=== PATIENT | male | born 1970 | race Caucasian/White ===

== ENCOUNTER 2017-05-13 09:54 | Emergency (ER) | payer OTHER ==
[~2017-05-13] VITALS: Ht 175.3 cm; Wt 108.9 kg
[~2017-05-13 09:54] MED LIST: IBUPROFEN200 M1 PO; IBUPROFEN200 MG PO; NORCO 5-325 TA1 EACH PO; PRILOSEC10 MG PO; SOMA350 MG PO; ZESTRIL10 MG PO
== END 2017-05-13 11:06 | disposition home or self-care (01) ==
LOC: ED 09:54
DX: S61.212A Laceration without foreign body of right middle finger without damage to nail, initial encounter (principal); I10 Essential (primary) hypertension; Z87.891 Personal history of nicotine dependence; Z88.5 Allergy status to narcotic agent; W26.0XXA Contact with knife, initial encounter
CPT/HCPCS: 90471; 90715; 99282

== ENCOUNTER 2019-08-30 01:43 | Emergency (ER) | payer BC ==
[~2019-08-30] VITALS: Ht 175.3 cm; Wt 113.8 kg
--- OUTSIDE RECORDS SUMMARY | 2019-08-30 01:46 | XMS ---
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 EЕлена VISIT COUNT (12 MO.) 1 ANDRES Neville TOTAL 1 NOTE: Visits indicate total known visits. ED/UCC VISIT TRACKING (12 MO.) 08/30/2019 01:43 ANDRES John [place] TYPE: Emergency COMPLAINT: - LEFT SIDE ABDOMINAL PAIN INPATIENT VISIT TRACKING (12 MO.) No inpatient visits to display in this time frame [id number]
[2019-08-30] MEDS ORDERED: METOPROLOL TART25 MG PO (01:57)
[2019-08-30] MEDS ORDERED: LISINOPRIL20 MG PO (01:57)
[2019-08-30] MEDS ORDERED: PROAIR HFA8.5 GM INH (01:58)
[2019-08-30] MEDS ORDERED: VITAMIN D21250 MCG PO (01:58)
[2019-08-30] MEDS ORDERED: QVAR REDIHALE10.6 GM (01:59)
[2019-08-30] MEDS ORDERED: FLAGYL500 MG PO (04:38)
[2019-08-30] MEDS ORDERED: NORCO 5-325 TA1 EACH PO (04:38)
[2019-08-30] MEDS ORDERED: CIPRO500 MG PO (04:38)
== END 2019-08-30 05:52 | disposition home or self-care (01) ==
LOC: ED 01:43
DX: R10.32 Left lower quadrant pain (principal); R11.2 Nausea with vomiting, unspecified; I10 Essential (primary) hypertension; Z88.5 Allergy status to narcotic agent; Z79.899 Other long term (current) drug therapy
CPT/HCPCS: 74177; 80053; 81001; 83690; 85025; 96361; 99284-25; J1170; J1956; J2405; J2550; J7121; Q9967

== ENCOUNTER 2020-02-09 13:11 | Emergency (ER) | payer BC ==
[~2020-02-09] VITALS: Ht 175.3 cm; Wt 113.8 kg
--- OUTSIDE RECORDS SUMMARY | ~2020-02-09 | XMS | Encounter Summary ---
Demographics + + + | Address | [address] | | | [place] [address] | + + + | Home Phone | | + + + | Preferred Language | Unknown | + + + | Marital Status | | + + + | Advent Affiliation | 1027 | + + + | Race | Unknown | + + + | Ethnic Group | Unknown | + + + Author + + + | Author | [facility] | | | and [place] | + + + | Organization | [facility] | | | and [place] | + + + | Address | Unknown | + + + | Phone | Unavailable | + + + Support + + +---------+ + | Name | Relationship | Address | Phone | + + +---------+ + | Milena Dial ECON | Unknown | | | [place] | | | | + + +---------+ + Care Team Providers + +------+ + | Care Brake Lining Finisher Name | Role | Phone | + +------+ + PCP | Unavailable | + +------+ + Encounter Details +--------+ + + + + | Date | Type | Department | Care Team | Description | +--------+ + + + + | 01/19/ | Hospital | [facility] | Ray [place]anan | | | 2000 - | Encounter | HOSPITAL MED SURG | MD Juan Carlos [address] | | | | | [address] | [facility] [address] | | | 01/22/ | | [place], [place] | [place] [address] | | | 2000 | | [address] | [phone] | | | | | [phone] | | | +--------+ + + + + Social History + +-------+ +--------+------+ | Tobacco Use | Types | Packs/Day | Years | Date | | | | | Used | | + +-------+ +--------+------+ | Never Assessed | | | | | + +-------+ +--------+------+ + + + | Sex Assigned at | Date Recorded | | | | + + + | Not on file | | + + + documented as of this encounter Plan of Treatment Not on filedocumented as of this encounter Visit Diagnoses Not on filedocumented in this encounter"
--- OUTSIDE RECORDS SUMMARY | ~2020-02-09 | XMS | Clinical Summary ---
Demographics + + + | Address | [address] | | | [place] [address] | + + + | Home Phone | | + + + | Preferred Language | Unknown | + + + | Marital Status | | + + + | Jewish Affiliation | 1027 | + + + | Race | Unknown | + + + | Ethnic Group | Unknown | + + + Author + + + | Author | [facility] | | | and [place] | + + + | Organization | [facility] | | | and [place] [...] Team Providers + +------+ + | Care Heating Unit Mechanic Name | Role | Phone | + +------+ + PCP | Unavailable | + +------+ + Allergies Not on File Medications Not on file Active Problems Not on file Social History + +-------+ +--------+------+ | Tobacco [...] on file | | + + + Last Filed Vital Signs Not on file Plan of Treatment + + +-------+ + | Health Maintenance | Due Date | Last | Comments | | | | Done | | + + +-------+ + | Vaccine: | | | | | Dtap/Tdap/Td (1 - | 0 | | | | Tdap) | | | | + + +-------+ + | Vaccine: Influenza | | | | | (#1) | 0 | | | + + +-------+ + Results Not on filefrom Last 3 Months"
[~2020-02-09 13:11] MED LIST changes: +CIPRO500 MG PO; +FLAGYL500 MG PO; +LISINOPRIL20 MG PO; +METOPROLOL TART25 MG PO; +PROAIR HFA8.5 GM INH; +QVAR REDIHALE10.6 GM; +VITAMIN D21250 MCG PO
[2020-02-09] MEDS ORDERED: ATORVASTATIN CA40 MG PO (15:17)
== END 2020-02-09 13:50 | disposition home or self-care (01) ==
LOC: ED 13:11
DX: R21 Rash and other nonspecific skin eruption (principal)

== ENCOUNTER 2022-06-12 17:38 | Emergency (ER) | payer BC ==
[~2022-06-12] VITALS: Ht 175.3 cm; Wt 117.9 kg
[~2022-06-12 17:38] MED LIST changes: +ATORVASTATIN CA40 MG PO
[2022-06-12] MEDS ORDERED: HYDROCODON-ACE1 EA11 PO (20:03)
== END 2022-06-12 20:46 | disposition home or self-care (01) ==
LOC: ED 17:38
DX: K63.89 Other specified diseases of intestine (principal); I10 Essential (primary) hypertension; I25.2 Old myocardial infarction; Z87.891 Personal history of nicotine dependence; Z88.5 Allergy status to narcotic agent; Z79.899 Other long term (current) drug therapy
CPT/HCPCS: 36415; 74177; 80053; 81001; 83690; 85025; 96361; 96375; 99284-25; A9270; J1885; J2405; J7030; Q9967

== ENCOUNTER 2023-06-05 08:55 | Emergency (ER) | payer BC ==
[~2023-06-05] VITALS: Ht 175.3 cm; Wt 112.1 kg
[~2023-06-05 08:55] MED LIST changes: +HYDROCODON-ACE1 EA11 PO
[2023-06-05] MEDS ORDERED: VENTOLIN HFA18 GM INH (10:00)
[2023-06-05] MEDS ORDERED: AMOX TR-K CLV1 EAC1 PO (10:00)
[2023-06-05 10:06] VITALS: BP 152/104
== END 2023-06-05 10:06 | disposition home or self-care (01) ==
LOC: ED 08:55
DX: J20.9 Acute bronchitis, unspecified (principal); I10 Essential (primary) hypertension; I25.2 Old myocardial infarction; Z87.891 Personal history of nicotine dependence; Z88.5 Allergy status to narcotic agent; Z79.899 Other long term (current) drug therapy; Z79.51 Long term (current) use of inhaled steroids
CPT/HCPCS: 71046; 99283-25

== ENCOUNTER 2024-09-28 06:20 | Day surgery (SDC) | payer BC ==
[~2024-09-28] VITALS: Ht 175.3 cm; Wt 100.0 kg
[~2024-09-28 06:20] MED LIST changes: +AMOX TR-K CLV1 EAC1 PO; +ATORVASTATIN CA80 MG PO; +CEPHALEXIN500 M1 PO; +CHLORTHALIDONE25 MG PO; +CYCLOBENZAPRINE10 MG PO; +FENOFIBRATE67 MG PO; +HYDROXYZINE HCL25 MG PO; +METFORMIN HCL500 M3 PO; +MIDAZOLAM HCL 5 MG/5 ML VIAL IV PRN; +TRAZODONE HCL50 MG PO; +TRULICITY0.75 MG/0. SUB-Q; +VENTOLIN HFA18 GM INH; +fentaNYL citrate 100 MCG/2 ML VIAL IV PRN
[2024-09-28 06:41] VITALS: BP 127/82
[2024-09-28] MEDS ORDERED: FISH OIL 1,0001 EAC6 PO (06:48)
[2024-09-28] MEDS ORDERED: PRILOSEC2.5 MG PO (06:48)
[2024-09-28] MEDS ORDERED: VAZALORE81 MG PO (06:48)
[2024-09-28] MEDS ORDERED: MIDAZOLAM HCL 5 MG/5 ML VIAL ONE (06:53)
[2024-09-28] MEDS ORDERED: fentaNYL citrate 100 MCG/2 ML VIAL ONE (06:54)
[2024-09-28] MEDS ORDERED: LACTATED RINGER'S 1,000 ML IV SCH (07:00)
[2024-09-28] MEDS ORDERED: LIDOCAINE HCL 1% 5 ML SDV INJ ONE (07:00)
[2024-09-28] MEDS ORDERED: IBLOOD GLUCOSE TEST STRIP 1 EA TEST VI PRN (07:00)
--- NOTE | 2024-09-28 07:38 | NUR ---
PT NOT AVAILABLE FOR VISIT. PROVIDED PRAYER.
--- NOTE | 2024-09-28 08:56 | NUR ---
09/28/24 0856 Mulu Sanchez 0838 PT ARRIVED IN PACU SLEEPY. ABD SOFT AND PASSING FLATUS. 0845 DR AT BEDSIDE ALL QUESTIONS ANSWERED. 0855 SNORING. REU.
[2024-09-28 09:11] VITALS: BP 113/69
--- NOTE | 2024-09-28 15:52 | OR ---
[facility] [address] [place], [place] [address] Signed DATE OF OPERATION: 09/28/2024 SURGEON: Viktoria Rasheed MD PREOPERATIVE DIAGNOSIS: Colon screening. POSTOPERATIVE DIAGNOSES: 1. Scattered diverticula. 2. Multiple polyps. PROCEDURE: Total colonoscopy to cecum with cold snare polypectomy x1, cold morcellation polypectomy x6. ANESTHESIA: Intravenous sedation fentanyl 200 mcg and Versed 8 mg. INDICATION: This 54-year-old white man is a patient of LIA Kapoor and referred for screening colonoscopy. He has no symptoms of bleeding, diarrhea, or constipation and no family history of colon cancer. He understands risk of bleeding, infection, and perforation related to colonoscopy and wished to proceed. FINDINGS: The prep was quite good except for the cecum proper. There was no neoplasm, but some amount of solid stool was noted. There were few scattered diverticula. He had small polyps. The most dominant probable adenomatous one was in the proximal sigmoid, which was excised with cold snare technique. Another small polyp nearby with cold morcellation technique. Three small polyps were noted at the rectosigmoid, two in the mid rectum and one in the very low rectum on retroflexed view. He tolerated the procedure well. DESCRIPTION OF PROCEDURE: The patient was brought to the endoscopy suite and placed in lateral decubitus position, given intravenous sedation to the point of slurred speech and nystagmus. Digital rectal examination was normal. An Olympus video colonoscope was passed in the rectum and manipulated throughout the colon noting a few scattered diverticula. The scope was ultimately passed to the right Electronically Signed By: VIKTORIA RASHEED MD 09/28/24 1552 PATIENT NAME: GALI ACUNA OPERATIVE REPORT DATE OF : 72 REPORT #: [id number] PHYSICIAN: VIKTORIA RASHEED MD PCP: LINDA QUEZADA NP REPORT IS CONFIDENTIAL AND NOT TO BE RELEASED WITHOUT AUTHORIZATION [facility] [address] [place], [place] [address] Signed colon and then into the cecal area. The cecal area did have some solid stool and mucosal surfaces could be examined, but full through examination of the cecum was lacking unfortunately. Photographs were taken. The scope was withdrawn from that point after as much irrigation as could be applied had been done. Upon withdrawal of scope, there were no abnormalities until the proximal sigmoid where an adenomatous appearing polyp was noted. This was excised with cold snare technique. Nearby small polyp was excised with cold morcellation technique. Further withdrawal showed a too small possibly hyperplastic polyps of the rectosigmoid. Further withdrawal showed two more in the mid rectum and one on retroflexed view in the low rectum. All were excised with cold morcellation technique. The scope was straightened, withdrawn and removed. The patient was taken to the recovery room in good condition. CONCLUDING DIAGNOSIS: Multiple polyps, some of which may be hyperplastic. PLAN: Recommend repeat colonoscopy in 3 to 5 years, sooner if symptoms should develop. We will recommend high-fiber diet. MD SHIVA Brewster/[place] /[id number] cc: LIA Kapoor Copies: ~ Electronically Signed By: VIKTORIA RASHEED MD 09/28/24 1552 PATIENT NAME: GALI ACUNA OPERATIVE REPORT DATE OF : 72 REPORT #: [id number] PHYSICIAN: VIKTORIA RASHEED MD PCP: LINDA QUEZADA NP REPORT IS CONFIDENTIAL AND NOT TO BE RELEASED WITHOUT AUTHORIZATION
--- NOTE | 2024-09-30 10:47 | PATH ---
[facility] [address] [place], [place] [address] Signed SPECIMEN(S): A SIGMOID POLYPS SPECIMEN(S): B RECTOSIGMOID POLYPS SPECIMEN(S): C RECTAL POLYPS SPECIMEN(S): D LOW RECTAL POLYP SPECIMEN SOURCE: A. SIGMOID POLYPS B. RECTOSIGMOID POLYPS C. RECTAL POLYPS D. LOW RECTAL POLYP CLINICAL HISTORY: Initial screening, family history of colon polyps/cancer. Post: Diverticulosis, multiple polyps. FINAL PATHOLOGIC DIAGNOSIS: A. Sigmoid polyps: - Tubular adenoma (1 fragment), negative for high-grade dysplasia. - Hyperplastic polyp (1 fragment), negative for dysplasia. B. Rectosigmoid polyps: - Hyperplastic polyps, negative for dysplasia. C. Rectal polyps: - Hyperplastic polyps, negative for dysplasia. D. Low rectal polyp: - Hyperplastic polyp, negative for dysplasia. NA MICROSCOPIC EXAMINATION: Histologic sections of all submitted blocks are examined by light microscopy. These findings, together with the gross examination, support the pathologic diagnosis. GROSS DESCRIPTION: A. The specimen, labeled and designated "Amie, T, sigmoid polyps," is received in formalin and consists of two kwok soft tissue fragments, ranging from 0.3-0.4 cm. Entirely submitted in (A1). B. The specimen, labeled and designated "Amie, T, rectosigmoid polyps," is received in formalin and consists of three kwok soft tissue fragments, ranging from 0.1-0.5 cm. Entirely submitted in (B1). C. The specimen, labeled and designated "Amie, T, rectal polyps," is PATIENT NAME: GALI ACUNA PATHOLOGY DATE OF : 72 REPORT #: [id number] PHYSICIAN: BRENNEN JULIO PCP: LINDA QUEZADA NP REPORT IS CONFIDENTIAL AND NOT TO BE RELEASED WITHOUT AUTHORIZATION [facility] [address] [place], [place] [address] Signed received in formalin and consists of three kwok soft tissue fragments, ranging from 0.2-0.3 cm. Entirely submitted in (C1). D. The specimen, labeled and designated "Amie, T, low rectal polyp," is received in formalin and consists of one kwok soft tissue fragment, 0.4 cm. Entirely submitted in (D1). AB (under the direct supervision of a pathologist) The Gross Description was prepared using a voice recognition system. The report was reviewed for accuracy; however, sound-alike word errors, addition and/or deletions may occur. If there is any question about this report, please contact Client Services. ADDITIONAL NOTES: Immunohistochemical and/or in situ hybridization studies if performed in this case included appropriate positive controls that reacted as expected. This test was developed and its performance characteristics determined by [facility]. It has not been cleared or approved by the U.S. Food and Drug Administration. The FDA has determined that such clearance or approval is not necessary. This test is used for clinical purposes. It should not be regarded as investigational or for research. [facility] is certified under the Clinical Laboratory Improvement Amendments of 1988 (CLIA) as qualified to perform high complexity clinical laboratory testing. PERFORMING LABORATORY: Professional interpretation was performed by [facility], [address] [place] [address] (CLIA#: [id number]). Diagnostician: Angie Pham MD Pathologist Electronically Signed 09/30/2024 Copies: ~ PATIENT NAME: GALI ACUNA PATHOLOGY DATE OF : 72 REPORT #: [id number] PHYSICIAN: BRENNEN JULIO PCP: LINDA QUEZADA NP REPORT IS CONFIDENTIAL AND NOT TO BE RELEASED WITHOUT AUTHORIZATION
== END 2024-09-28 09:25 | disposition home or self-care (01) ==
LOC: OPS 06:20 → DS 06:20 → OPS 07:30 → DS 07:30 → OPS 09:25
PROVIDERS: ATTEND Surgery
PROC: 0DBN8ZZ Excision of Sigmoid Colon, Via Natural or Artificial Opening Endoscopic (ICD-10-PCS; 2024-09-28)
PROC: 0DBP8ZZ Excision of Rectum, Via Natural or Artificial Opening Endoscopic (ICD-10-PCS; principal; 2024-09-28 07:30)
DX: Z12.11 Encounter for screening for malignant neoplasm of colon (principal); D12.5 Benign neoplasm of sigmoid colon; K62.1 Rectal polyp; K57.30 Diverticulosis of large intestine without perforation or abscess without bleeding; F10.10 Alcohol abuse, uncomplicated; F12.90 Cannabis use, unspecified, uncomplicated; E11.9 Type 2 diabetes mellitus without complications; Z90.49 Acquired absence of other specified parts of digestive tract; Z98.890 Other specified postprocedural states; Z79.899 Other long term (current) drug therapy; Z79.84 Long term (current) use of oral hypoglycemic drugs
CPT/HCPCS: 99153; G0500; J2250; J3010; J7121